=== PATIENT | male | born 1990 | race Caucasian/White ===

== ENCOUNTER 2018-05-20 11:37 | Emergency (ER) | payer OTHER ==
[~2018-05-20] VITALS: Ht 182.9 cm; Wt 65.9 kg
[2018-05-20 11:59] VITALS: BP 122/75
--- NOTE | 2018-05-20 12:04 | NUR ---
PT AMBULATES TO BED 5
--- NOTE | 2018-05-20 12:05 | NUR ---
PT ARRIVED TO ED , WAS REFERRED BY URGENT CARE WITH C/O VOMITING THIS MORNING WITH GEN WEAKNESS AND COLD SWEATS. PT. STATES " I WAS DRINKING ALL DAY SUNDAY AND SUNDAY AND THIS MORNING I WOKE UP AND I THREW UP ALL THE PEDIALYTE I DRANK". PT ADMITS TO [place]IJ[place] USE OVER THE WEEKEND WELL. PT. AWAKE AND ALERT AND ABLE TO SPEAK IN FULL AND COMPLETE SENTENCES. C/O OF N/V SINCE THIS MORNING. ER MD MADE AWARE. SAFETY PRECAUTIONS IN PLACE. WILL CONTINUE TO MONITOR.
--- NOTE | 2018-05-20 13:10 | NUR ---
PT. RESTING IN BED, VSS. HOB ELEVATED. WILL CONTINUE TO MONITOR
[2018-05-20] MEDS ORDERED: MULTIVITAMIN-12 10 ML, THIAMINE 100 MG, MAGNESIUM SULFATE 50% 2,000 MG, FOLIC ACID 5 MG... IV ONE ×5 (13:35)
[2018-05-20] MEDS ORDERED: NACL 0.9% 1,000 ML IV ONE (13:35)
--- NOTE | 2018-05-20 13:47 | NUR ---
PT. AMBULATED TO RESTROOM WITH STEADY GAIT. DENIES ANY DIZZYNESS AT THIS TIME.
[2018-05-20 14:11] LABS: BASOPHILS # (AUTO) 0.1 K/uL (0.00-0.22); BASOPHILS % (AUTO) 0.5 % (0.0-2.0); EOSINOPHILS % (AUTO) 0.1 % (0.0-4.0); HEMATOCRIT 50.2 % (36-52); HEMOGLOBIN 16.6 g/dL (12.0-18.0); LYMPHOCYTES # (AUTO) 2.2 K/uL (2.0-11.5); LYMPHOCYTES % (AUTO) 14.3 % (20.5-51.1); MEAN CORPUSCULAR HEMOGLOBIN 30 pg (27-31); MEAN CORPUSCULAR HGB CONC 33 g/dL (33-37); MEAN CORPUSCULAR VOLUME 91.8 fL (80-94); MONOCYTES # (AUTO) 1.4 K/uL (0.8-1.0); MONOCYTES % (AUTO) 9.5 % (1.7-9.3); NEUTROPHILS # (AUTO) 11.4 K/uL (1.8-7.7); NEUTROPHILS % (AUTO) 75.6 % (42.2-75.2); PLATELET COUNT (AUTO) 284 K/uL (140-450); RED BLOOD CELL COUNT(AUTO) 5.47 MIL/uL (4.20-6.10); RED CELL DISTRIBUTION WIDTH 13.8 % (11.6-13.7); WHITE BLOOD COUNT (AUTO) 15.1 K/uL (4.8-10.8)
[2018-05-20 14:36] LABS: ALBUMIN 5.1 g/dL (3.4-5.0); ANION GAP 16.4 (8-16); ASPARTATE AMINOTRANSFERASE 36 U/L (15-37); CARBON DIOXIDE 33.7 mmol/L (21-32); CHLORIDE 93 mmol/L (98-107); CREATININE 0.9 mg/dL (0.7-1.3); GFR ARICAN-AMERICAN 130 mL/min (>90); GLUCOSE 100 mg/dL (74-106); POTASSIUM 4.1 mmol/L (3.5-5.1); SODIUM SERUM 139 mmol/L (136-145); TOTAL BILIRUBIN 1.6 mg/dL (0.0-1.0)
[2018-05-20 14:45] LABS: BARBITURATE, URINE NEG. ng/ml (NEG <=200); BENZODIAZEPINE, URINE NEG. ng/mL (NEG <=200); CANNABINOID, URINE POS. ng/mL (NEG <=50); COCAINE, URINE NEG. ng/mL (NEG <=300); OPIATE, URINE NEG. ng/mL (NEG <=2000); PHENCYCLIDINE SCREEN,URINE NEG. ng/mL (NEG <=25)
--- NOTE | 2018-05-20 14:52 | NUR ---
PT. RESTING COMFORTABLY IN BED, RR EVEN AND UNLABORED. VSS. WILL CONTINUE TO MONITOR. SAFETY PRECAUTIONS IN PLACE
[2018-05-20 15:55] VITALS: BP 118/77
--- NOTE | 2018-05-20 15:55 | NUR ---
Patient discharged with v/s stable. Written and verbal after care instructions given and explained. Patient alert, oriented and verbalized understanding of instructions. Ambulatory with steady gait. All questions addressed prior to discharge. ID band removed. Patient advised to follow up with PMD. Rx of PROTONIX 40MG, VISTARIL 25MG given. Patient educated on indication of medication including possible reaction and side effects. Opportunity to ask questions provided and answered.
[2018-05-20 15:58] LABS: UREA NITROGEN, BLOOD 15 mg/dL (7-18)
[2018-05-20 19:54] LABS: APPEARANCE,URINE CLEAR (CLEAR); COLOR,URINE YELLOW (YELLOW); PH,URINE 7.5 (5.0-9.0)
[2018-05-20 19:55] LABS: BLOOD, URINE NEGATIVE (NEGATIVE); UGLUCOSE NEGATIVE (NEGATIVE)
[2018-05-20 19:56] LABS: BILIRUBIN,URINE 2+ (NEGATIVE); LEUKOCYTE ESTERASE ,URINE NEGATIVE (NEGATIVE); NITRITE, URINE NEGATIVE (NEGATIVE)
== END 2018-05-20 15:55 | disposition home or self-care (01) ==
LOC: MED 11:37
DX: K29.20 Alcoholic gastritis without bleeding (principal); F12.129 Cannabis abuse with intoxication, unspecified
CPT/HCPCS: 36415; 80053; 80305; 81003; 85025; 96365; 96366; 99283; A9153; G0482; J3411; J3475; J3490; J7030; 96361

== ENCOUNTER 2022-06-21 08:45 | Emergency (ER) | payer OTHER ==
[~2022-06-21] VITALS: Ht 193 cm; Wt 64.0 kg
[2022-06-21 08:58] VITALS: BP 149/79
--- NOTE | 2022-06-21 09:08 | NUR ---
32 y/o male bib self, c/o n/v, left sided abdominal pain and low appetite for 3 days. pt states he has been drinking heavy the past few days with last drink yesterday. 09/06 pain at this time. pmh: denies nka med: denies
--- NOTE | 2022-06-21 09:43 | NUR ---
LAB AT BEDSIDE.
[2022-06-21 10:17] LABS: BASOPHILS # (AUTO) 0.1 K/uL (0.00-0.22); EOSINOPHILS % (AUTO) 0.4 % (0.0-4.0); HEMATOCRIT 46.7 % (36-52); LYMPHOCYTES % (AUTO) 22.4 % (20.5-51.1); MEAN CORPUSCULAR HEMOGLOBIN 31 pg (27-31); MEAN CORPUSCULAR HGB CONC 34 g/dL (33-37); MEAN CORPUSCULAR VOLUME 89.9 fL (80-94); MONOCYTES # (AUTO) 0.9 K/uL (0.8-1.0); MONOCYTES % (AUTO) 9.9 % (1.7-9.3); NEUTROPHILS % (AUTO) 66.3 % (42.2-75.2); PLATELET COUNT (AUTO) 237 K/uL (140-450); RED CELL DISTRIBUTION WIDTH 14.1 % (11.6-13.7)
[2022-06-21] MEDS ORDERED: NACL 0.9% 1,000 ML IV SCH (10:20)
[2022-06-21] MEDS ORDERED: DICYCLOMINE HCL LIQUID 20 MG, ALUMINUM HYD/MAG/SIMETHICONE 30 ML, LIDOCAINE VISCOUS 2% ... PO ONE ×3 (10:25)
[2022-06-21] MEDS ORDERED: ONDANSETRON 4 MG/2 ML VIAL IVP ONE (10:25)
[2022-06-21 10:29] LABS: ALBUMIN 4.2 g/dL (3.4-5.0); ANION GAP 13.9 (8-16); CARBON DIOXIDE 30.8 mmol/L (21-32); POTASSIUM 3.7 mmol/L (3.5-5.1); TOTAL BILIRUBIN 0.4 mg/dL (0.0-1.0)
[2022-06-21] MEDS ORDERED: ALUMINUM HYD/MAG/SIMETHICONE 30 ML UDC ONE (10:35)
[2022-06-21] MEDS ORDERED: DICYCLOMINE HCL LIQUID 10 MG/5 ML UDC ONE (10:36)
--- NOTE | 2022-06-21 11:51 | NUR ---
Patient discharged with v/s stable. Written and verbal after care instructions given and explained. Patient verbalized understanding. Ambulatory with steady gait. All questions addressed prior to discharge. Advised to follow up with PMD.
--- NOTE | 2022-06-21 12:27 | NUR ---
The patient's care was reviewed and supervised by Sachi Abdul, RN, RN.
== END 2022-06-21 11:51 | disposition home or self-care (01) ==
LOC: MED 08:45
DX: R10.13 Epigastric pain (principal); R11.2 Nausea with vomiting, unspecified
CPT/HCPCS: 36415; 80053; 83690; 85025; 96361; 96374; 99283; J2405; J7030